=== PATIENT | male | born 1960 | race Caucasian/White ===

== ENCOUNTER 2017-08-20 05:38 | Emergency (ER) | payer SELFPAY ==
[~2017-08-20] VITALS: Ht 165.1 cm; Wt 62.8 kg
[2017-08-20 05:53] VITALS: Ht 165.1 cm; Wt 62.8 kg
[2017-08-20] MEDS ORDERED: DEXAMETHASONE 10 MG/ML 1 ML INJ IM ONE (06:30)
--- NOTE | 2017-08-20 06:38 | ERD ---
ER Documentation Chief Complaint Chief Complaint Rash on right forearm HPI The patient is a 57-year-old male who presents the emergency department with complaint of a painful, burning and itchy rash to the right forearm. The patient reports that approximately 1 week ago he accidentally came into contact with poison tari. Shortly afterwards he developed an erythematous rash to the right forearm, in the area that was in contact with the plan, which has persisted. He reports significant pruritus and discomfort associated with the area of the rash. He was seen at the emergency department at [facility], at which time he was prescribed Benadryl. However, he has been taking the Benadryl with no significant relief of symptoms. He denies any fevers, sweats, chills, nausea or vomiting. Denies any numbness, paresthesias or weakness of the distal extremity. Denies any spreading of the rash. Denies skin sloughing or mucous membrane involvement. Denies any other complaints at this time. ROS All systems reviewed and are negative except as per history of present illness. Medications Home Meds Active Scripts Hydroxyzine Hcl* (Hydroxyzine Hcl*) 25 Mg Tablet, 25 MG PO Q8H Y for ITCHING, # 30 TAB Prov:DEVAN OWENS PA-C 08/20/17 Prednisone* (Prednisone*) 20 Mg Tab, 60 MG PO DAILY for 6 Days, TAB Prov:DEVAN OWENS PA-C 08/20/17 Clobetasol Propionate* (Clobetasol Propionate*) 60 Gm Cream.gm., 1 APPLIC TOP BID for 7 Days, #1 TUB Prov:DEVAN OWENS PA-C 08/20/17 Reported Medications [None] No Conflict Check 06/05/10 Allergies Allergies: Coded Allergies: No Known Drug Allergies (Verified Allergy, Mild, 06/05/10) PMhx/Soc History of Surgery: No Anesthesia Reaction: No Hx Neurological Disorder: No Hx Respiratory Disorders: No Hx Cardiac Disorders: No Hx Psychiatric Problems: No Hx Miscellaneous Medical Probl: No Hx Alcohol Use: No Hx Substance Use: No Hx Tobacco Use: Yes (6 CIGARETTES PER DAY) Physical Exam Vitals Vital Signs Date Time Temp Pulse Resp B/P Pulse Ox O2 Delivery O2 Flow Rate FiO2 08/20/17 05:53 97.9 82 16 152/84 98 Physical Exam Const: Well-developed, well-nourished, in no acute distress. Head: Normocephalic. Atraumatic Eyes: Normal Conjunctiva ENT: Normal External Ears, Nose and Mouth. Clear oropharynx. No lip or tongue swelling. Moist mucous membranes. No trismus. No stridor. No excessive drooling. Phonation is normal. No submandibular swelling. No brawny induration. Neck: Supple. Full range of motion. Resp: Clear to auscultation bilaterally. No wheezing. Cardio: Regular rate and rhythm. Skin: Erythematous, pruritic papular rash plaque-like dermatitis in linear distribution to the volar aspect of the right forearm. No surrounding swelling , warmth. No lymphatic streaking. No crepitus. No skin sloughing. No urticaria, vesicles, bullae, ulcerations. No skip or target lesions. No pain away from site of rash. Petechiae or purpura. Back: Normal range of motion. Ext: No clubbing, cyanosis, or edema Neur: Awake and alert Psych: Cooperative. Results 24 hrs Current Medications Medications (Trade) Dose Ordered Sig/Symone Route PRN Reason Start Time Stop Time Status Last Admin Dose Admin Dexamethasone (Decadron) 10 mg ONCE ONCE IM 08/20/17 06:30 08/20/17 06:31 DC 08/20/17 06:35 Procedures/MDM This patient is a 57-year-old female presenting to the emergency department with a burning, itching rash to the right forearm that began after contact with poison tari. On physical examination the patient had an erythematous, papular, pruritic rash to the volar aspect of the right forearm. Otherwise, no target lesions, skip lesions, crepitus, skin sloughing, urticaria, oozing, central clearing were noted. The patient's oropharynx and airway were patent, and he exhibited no breathing difficulties, wheezing, tongue swelling or lip swelling. No evidence of angioedema, airway compromise, inability to handle oral secretions or stridor. Patient's phonation is normal. No wheezing auscultated on physical examination. Circulation was appropriate, with no systemic signs of anaphylaxis, no hypotension. No associated purpura or generalized petechiae. Differential diagnoses considered include, but are not limited to, allergic reaction, insect bite, fungal infection, cellulitis, MRSA, impetigo, shingles, herpes simplex virus, abscess, dermatitis, viral syndrome, candidiasis, medication reaction, seborrheic dermatitis, lichen simplex chronicus, contact dermatitis, irritant dermatitis, psoriasis, dyshidrosis, ichthyosis, scabies, Barger Randy syndrome, epidermolysis bullosa, toxic epidermal necrolysis, meningococcemia, toxic shock syndrome, sesd-ykco-llv-mouth disease. No evidence of crepitus, skip lesions or pain away from the site of rash, that would be concerning for necrotizing fasciitis or myositis. No mucosal involvement or appearance concerning for Barger Randy syndrome or TENS. No airway compromise or concern for anaphylaxis. No indication of angioedema. Clinical presentation not consistent with erythema nodosum, lyme disease, fungal infection or erythema migrans. No evidence of secondary bacterial infection. After rest and administration of Decadron, the patient reports no new complaints. Upon review and interpretation of the patient's presentation, and overall ER course, I believe the patient's symptoms are most consistent with likely contact dermatitis/poison tari dermatitis. At this time the patient is in stable condition and not experiencing any wheezing or signs of respiratory distress, and therefore he can be discharged home with prescription for Clobetasol topical , Hydroxyzine, Prednisone and given strict return precautions for signs of deteriorating or worsening condition. He is advised to follow up with his primary care provider for reevaluation and further management within the next 1- 2 days, or return to the ER sooner for any new or worsening symptoms. Additionally, should symptoms persist, he is advised to follow up with dermatology as well. I shared my medical decision making and plan with the patient at length and in great detail, and he verbally understands and agrees with the plan for further observation and care as an outpatient. At the time of discharge, all questions were answered. Departure Diagnosis: Primary Impression: Poison tari dermatitis Condition: Stable Patient Instructions: Managing a Poison Tari, Poison [place], or Poison [place] Reaction, Poison Tari Dermatitis Additional Instructions: Llame al doctor MAANA y milka paolo JEF PARA DENTRO DE 1-2 CEVALLOS.Dgale a la secretaria que nosotros le instruimos hacer esta jef.Avise o llame si angelo condicin se empeora antes de la jef. Regresa aqui si peor o no mejor. DEVAN OWENS PA-C Aug 20, 2017 06:38
[2017-08-20] MEDS ORDERED: CLOB60CR2 TOP (06:39)
[2017-08-20] MEDS ORDERED: PRED20TA PO (06:41)
[2017-08-20] MEDS ORDERED: HYDR-3011 PO (06:41)
== END 2017-08-20 06:49 | disposition home or self-care (01) ==
LOC: FTE 05:38
DX: L23.7 Allergic contact dermatitis due to plants, except food (principal); Z87.891 Personal history of nicotine dependence
CPT/HCPCS: 96372; 99284; J1100